=== PATIENT | female | born 1970 | race Caucasian/White ===

== ENCOUNTER 2016-03-07 20:45 | Emergency (ER) | payer MEDICAID | END 2016-03-07 23:15 | disposition left against medical advice (07) | LOC: D.ER 20:45 | DX: M54.9 Dorsalgia, unspecified (principal) ==

== ENCOUNTER 2016-04-06 19:46 | Emergency (ER) | payer MEDICAID | END 2016-04-06 22:26 | disposition home or self-care (01) | LOC: D.ER 19:46 | DX: S60.051A Contusion of right little finger without damage to nail, initial encounter (principal); X58.XXXA Exposure to other specified factors, initial encounter; Y93.51 Activity, roller skating (inline) and skateboarding; Y92.331 Roller skating rink as the place of occurrence of the external cause; J44.9 Chronic obstructive pulmonary disease, unspecified ==

== ENCOUNTER 2016-04-29 18:18 | Emergency (ER) | payer MEDICAID | END 2016-04-29 22:02 | disposition home or self-care (01) | LOC: D.ER 18:18 | DX: M54.2 Cervicalgia (principal); M25.511 Pain in right shoulder; V49.40XA Driver injured in collision with unspecified motor vehicles in traffic accident, initial encounter; Y93.89 Activity, other specified; Y92.410 Unspecified street and highway as the place of occurrence of the external cause; F17.200 Nicotine dependence, unspecified, uncomplicated ==

== ENCOUNTER 2016-08-07 20:02 | Emergency (ER) | payer MEDICAID | END 2016-08-07 21:07 | disposition home or self-care (01) | LOC: D.ER 20:02 | DX: M25.531 Pain in right wrist (principal); M25.431 Effusion, right wrist; F17.200 Nicotine dependence, unspecified, uncomplicated ==

== ENCOUNTER 2016-08-08 17:36 | Emergency (ER) | payer MEDICAID | END 2016-08-08 19:16 | disposition left against medical advice (07) | LOC: D.ER 17:36 | DX: M79.674 Pain in right toe(s) (principal) ==

== ENCOUNTER 2016-08-18 22:33 | Emergency (ER) | payer MEDICAID | END 2016-08-19 03:24 | disposition home or self-care (01) | LOC: D.ER 22:33 | DX: L60.0 Ingrowing nail (principal); F17.200 Nicotine dependence, unspecified, uncomplicated ==

== ENCOUNTER → 2016-09-02 | Emergency (ER) | payer MEDICAID | END | disposition home or self-care (01) | LOC: D.ER 19:21 | DX: Z02.9 Encounter for administrative examinations, unspecified (principal) ==

== ENCOUNTER 2016-12-25 23:04 | Emergency (ER) | payer MEDICAID | END 2016-12-26 00:04 | disposition home or self-care (01) | LOC: D.ER 23:04 | DX: S16.1XXA Strain of muscle, fascia and tendon at neck level, initial encounter (principal); W18.2XXA Fall in (into) shower or empty bathtub, initial encounter; Y93.E1 Activity, personal bathing and showering; Y92.022 Bathroom in mobile home as the place of occurrence of the external cause; S39.012A Strain of muscle, fascia and tendon of lower back, initial encounter; J44.9 Chronic obstructive pulmonary disease, unspecified; Z85.118 Personal history of other malignant neoplasm of bronchus and lung; F17.200 Nicotine dependence, unspecified, uncomplicated ==

== ENCOUNTER 2017-01-03 23:22 | Emergency (ER) | payer MEDICAID ==
[2017-01-04 00:32] LABS: BASOPHILS 0.6 % (0-2); EOSINOPHILS 0.9 % (0-7); HEMATOCRIT 39.6 % (36.0-48.0); IMMATURE GRANULOCYTES 0.3 % (0-5); LYMPHOCYTES 46.8 % (15-50); MCH 35.2 pg (26.0-34.0); MCHC 35.4 g/dL (31.0-37.0); MCV 99.5 fL (80.0-100.0); MEAN PLATELET VOLUME 9.9 fL (7.4-10.4); MONOCYTES 12.6 % (2-11); NEUTROPHILS 38.8 % (40-80); RBC 3.98 10x6/uL (4.00-5.40); RDW 13.2 % (11.5-14.5); WBC 3.4 10x3/uL (4.8-10.8)
[2017-01-04 00:33] LABS: PLATELET COUNT 133 10x3/uL (130-400)
[2017-01-04 00:50] LABS: ALBUMIN 3.2 g/dL (3.4-5.0); ALKALINE PHOSPHATASE 130 U/L (46-116); ALT (SGPT) 47 U/L (10-68); BILIRUBIN - TOTAL 0.24 mg/dL (0.2-1.3); CALC OSMOLALITY 266 mosm/kg (275-300); CALCIUM 8.2 mg/dL (8.5-10.1); CARBON DIOXIDE 21.4 mmol/L (21.0-32.0); CHLORIDE - SERUM 101 mmol/L (98-107); CREATININE - SERUM 0.6 mg/dL (0.6-1.3); GLUCOSE 94 mg/dL (74-106); POTASSIUM - SERUM 3.7 mmol/L (3.5-5.1); PROTEIN - SERUM 6.8 g/dL (6.4-8.2); SODIUM 135 mmol/L (136-145); UREA NITROGEN 4 mg/dL (7-18); eGFR NON AFRICAN AMERICAN > 90 mL/min (90-120)
== END 2017-01-04 01:10 | disposition home or self-care (01) ==
LOC: D.ER 23:22
PROVIDERS: Family Medicine
DX: S06.0X1A Concussion with loss of consciousness of 30 minutes or less, initial encounter (principal); W18.2XXA Fall in (into) shower or empty bathtub, initial encounter; Y93.E1 Activity, personal bathing and showering; Y92.022 Bathroom in mobile home as the place of occurrence of the external cause; F17.200 Nicotine dependence, unspecified, uncomplicated

== ENCOUNTER 2017-04-01 13:11 | Emergency (ER) | payer SELFPAY | END 2017-04-01 17:08 | disposition home or self-care (01) | LOC: D.ER 13:11 | DX: L60.0 Ingrowing nail (principal); J44.9 Chronic obstructive pulmonary disease, unspecified; F17.200 Nicotine dependence, unspecified, uncomplicated ==

== ENCOUNTER 2017-06-21 15:10 | Emergency (ER) | payer MEDICAID ==
[2017-06-21 15:52] LABS: BASOPHILS 0.5 % (0-2); EOSINOPHILS 0.5 % (0-7); HEMATOCRIT 46.6 % (36.0-48.0); HEMOGLOBIN 16.1 g/dL (12-16); IMMATURE GRANULOCYTES 0.5 % (0-5); LYMPHOCYTES 25.8 % (15-50); MCHC 34.5 g/dL (31.0-37.0); MCV 104.3 fL (80.0-100.0); MEAN PLATELET VOLUME 10.6 fL (7.4-10.4); MONOCYTES 21.3 % (2-11); NEUTROPHILS 51.4 % (40-80); RBC 4.47 10x6/uL (4.00-5.40); RDW 12.8 % (11.5-14.5); WBC 2.2 10x3/uL (4.8-10.8)
[2017-06-21 15:54] LABS: PLATELET COUNT 81 10x3/uL (130-400)
[2017-06-21 16:18] LABS: PLATELET ESTIMATE DECREASED
== END 2017-06-21 17:13 | disposition home or self-care (01) ==
LOC: D.ER 15:10
PROVIDERS: Nurse Practitioner Family
DX: S16.1XXA Strain of muscle, fascia and tendon at neck level, initial encounter (principal); V43.52XA Car driver injured in collision with other type car in traffic accident, initial encounter; Y93.89 Activity, other specified; Y92.410 Unspecified street and highway as the place of occurrence of the external cause; S29.012A Strain of muscle and tendon of back wall of thorax, initial encounter; S39.012A Strain of muscle, fascia and tendon of lower back, initial encounter; S46.912A Strain of unspecified muscle, fascia and tendon at shoulder and upper arm level, left arm, initial encounter; M62.838 Other muscle spasm

== ENCOUNTER 2017-11-03 20:49 | Emergency (ER) | payer MEDICAID ==
[~2017-11-03] VITALS: Ht 170.2 cm; Wt 52.3 kg
[2017-11-03 21:09] VITALS: Ht 170.2 cm; Wt 52.3 kg
[2017-11-03] MEDS ORDERED: TORADOL10 MG PO (23:33)
[2017-11-03 23:44] VITALS: BP 157/84
== END 2017-11-03 23:44 | disposition home or self-care (01) ==
LOC: D.ER 20:49
DX: S49.91XA Unspecified injury of right shoulder and upper arm, initial encounter (principal); W01.0XXA Fall on same level from slipping, tripping and stumbling without subsequent striking against object, initial encounter; Y93.89 Activity, other specified; Y92.019 Unspecified place in single-family (private) house as the place of occurrence of the external cause; S59.901A Unspecified injury of right elbow, initial encounter; F17.200 Nicotine dependence, unspecified, uncomplicated

== ENCOUNTER 2017-11-09 11:42 | Emergency (ER) | payer OTHER ==
[~2017-11-09 11:42] MED LIST: TORADOL10 MG PO
[2017-11-09 11:50] VITALS: BP 185/113; Ht 170.2 cm
== END 2017-11-09 12:40 | disposition home or self-care (01) ==
LOC: D.ER 11:42
DX: M25.511 Pain in right shoulder (principal)

== ENCOUNTER 2018-06-01 13:33 | Emergency (ER) | payer OTHER ==
[~2018-06-01] VITALS: Ht 170.2 cm; Wt 54.1 kg
[2018-06-01 13:54] VITALS: BP 133/74; Ht 170.2 cm; Wt 54.1 kg
== END 2018-06-01 18:09 | disposition left against medical advice (07) ==
LOC: D.ER 13:33
DX: M25.541 Pain in joints of right hand (principal)

== ENCOUNTER 2018-06-07 18:42 | Emergency (ER) | payer OTHER ==
[~2018-06-07] VITALS: Ht 170.2 cm; Wt 53.2 kg
[2018-06-07 18:57] VITALS: Ht 170.2 cm; Wt 53.2 kg
[2018-06-07] MEDS ORDERED: VOLTAREN75 MG PO (20:44)
[2018-06-07 21:34] VITALS: BP 117/66
== END 2018-06-07 21:32 | disposition home or self-care (01) ==
LOC: D.ER 18:42
DX: M67.431 Ganglion, right wrist (principal); M25.531 Pain in right wrist

== ENCOUNTER 2018-10-11 13:50 | Emergency (ER) | payer OTHER ==
[~2018-10-11] VITALS: Ht 170.2 cm; Wt 51.8 kg
[~2018-10-11 13:50] MED LIST changes: +VOLTAREN75 MG PO
[2018-10-11 14:06] VITALS: Ht 170.2 cm; Wt 51.8 kg
[2018-10-11] MEDS ORDERED: HYDROXYZINE HCL10 MG PO (14:11)
[2018-10-11] MEDS ORDERED: HYDRALAZINE20 MG/ML PO (14:12)
[2018-10-11] MEDS ORDERED: VOLTAREN75 MG PO (15:03)
[2018-10-11 16:16] VITALS: BP 134/76
== END 2018-10-11 16:10 | disposition home or self-care (01) ==
LOC: D.ER 13:50
DX: S89.92XA Unspecified injury of left lower leg, initial encounter (principal); X58.XXXA Exposure to other specified factors, initial encounter; Y93.89 Activity, other specified; Y92.89 Other specified places as the place of occurrence of the external cause; M79.605 Pain in left leg

== ENCOUNTER 2018-10-27 19:52 | Emergency (ER) | payer OTHER ==
[~2018-10-27] VITALS: Ht 170.2 cm; Wt 50.0 kg
[~2018-10-27 19:52] MED LIST changes: +HYDRALAZINE20 MG/ML PO; +HYDROXYZINE HCL10 MG PO
[2018-10-27 19:56] VITALS: BP 127/59; Ht 170.2 cm; Wt 50.0 kg
== END 2018-10-27 21:29 | disposition home or self-care (01) ==
LOC: D.ER 19:52
DX: S60.454A Superficial foreign body of right ring finger, initial encounter (principal); W49.04XA Ring or other jewelry causing external constriction, initial encounter

== ENCOUNTER 2018-11-16 20:48 | Emergency (ER) | payer OTHER ==
[~2018-11-16] VITALS: Ht 170.2 cm; Wt 51.7 kg
[2018-11-16 21:07] VITALS: BP 133/73; Ht 170.2 cm; Wt 51.7 kg
[2018-11-16] MEDS ORDERED: TRAZODONE HCL150 MG PO (21:08)
[2018-11-16] MEDS ORDERED: CELEXA20 MG PO (21:08)
[2018-11-16] MEDS ORDERED: VOLTAREN25 MG PO (22:15)
== END 2018-11-16 22:24 | disposition home or self-care (01) ==
LOC: D.ER 20:48
DX: M25.531 Pain in right wrist (principal)

== ENCOUNTER 2018-12-02 21:49 | Emergency (ER) | payer OTHER ==
[~2018-12-02] VITALS: Ht 170.2 cm; Wt 50.9 kg
[~2018-12-02 21:49] MED LIST changes: +CELEXA20 MG PO; +TRAZODONE HCL150 MG PO; +VOLTAREN25 MG PO
[2018-12-02 21:57] VITALS: BP 135/99; Ht 170.2 cm; Wt 50.9 kg
== END 2018-12-02 23:23 | disposition home or self-care (01) ==
LOC: D.ER 21:49
DX: R07.81 Pleurodynia (principal); M25.512 Pain in left shoulder

== ENCOUNTER → 2018-12-22 11:13 | Outpatient (CLI) | payer OTHER ==
[2018-12-02 21:57] VITALS: BMI 17.5
[~2018-12-22 11:13] MED LIST changes: +NAPROSYN500 MG PO
== END | disposition home or self-care (01) ==
LOC: D.RT 11:13
PROVIDERS: ATTEND Nurse Practitioner
DX: J44.9 Chronic obstructive pulmonary disease, unspecified (principal)

== ENCOUNTER 2018-12-27 16:26 | Emergency (ER) | payer OTHER ==
[~2018-12-27] VITALS: Ht 170.2 cm; Wt 54.1 kg
[~2018-12-27 16:26] MED LIST changes: -NAPROSYN500 MG PO
[2018-12-27 16:42] VITALS: Ht 170.2 cm; Wt 54.1 kg
[2018-12-27] MEDS ORDERED: NAPROSYN500 MG PO (18:01)
[2018-12-27 18:35] VITALS: BP 122/78
== END 2018-12-27 18:47 | disposition home or self-care (01) ==
LOC: D.ER 16:26
DX: M25.512 Pain in left shoulder (principal); I10 Essential (primary) hypertension; Z72.0 Tobacco use; J44.9 Chronic obstructive pulmonary disease, unspecified

== ENCOUNTER → 2019-02-14 | Emergency (ER) | payer OTHER ==
[~2019-02-14] VITALS: Ht 170.2 cm; Wt 50.5 kg
[~2019-02-14] MED LIST changes: +BACLOFEN20 M1 PO; +NAPROSYN500 MG PO; +PREDNISONE20 MG PO; +TYLENOL #4 W/CO1 TAB PO
[2019-02-14 17:52] VITALS: BP 126/69; Ht 170.2 cm; Wt 50.5 kg
== END | disposition home or self-care (01) ==
LOC: D.ER 17:11
DX: G89.29 Other chronic pain (principal); M25.512 Pain in left shoulder; J44.9 Chronic obstructive pulmonary disease, unspecified; Z72.0 Tobacco use

== ENCOUNTER → 2019-02-23 14:21 | Outpatient (CLI) | payer OTHER ==
[2019-02-14 17:52] VITALS: BMI 17.4
== END | disposition home or self-care (01) ==
LOC: D.CT 14:21
PROVIDERS: ATTEND Internal Medicine Pulmonary Disease
DX: R07.89 Other chest pain (principal)

== ENCOUNTER 2019-07-02 16:45 | Emergency (ER) | payer OTHER ==
[~2019-07-02] VITALS: Ht 170.2 cm; Wt 45.0 kg
[~2019-07-02 16:45] MED LIST changes: +ATARAX 25 MG TA25 MG PO; +NORCO-7.51 TAB PO
[2019-07-02 16:50] VITALS: Ht 170.2 cm; Wt 45.0 kg
[2019-07-02] MEDS ORDERED: VIBRAMYCIN 100100 MG PO (17:52)
[2019-07-02] MEDS ORDERED: VOLTAREN75 MG PO (17:52)
[2019-07-02 18:26] VITALS: BP 140/79
== END 2019-07-02 18:26 | disposition home or self-care (01) ==
LOC: D.ER 16:45
DX: L03.031 Cellulitis of right toe (principal); J44.9 Chronic obstructive pulmonary disease, unspecified; Z72.0 Tobacco use

== ENCOUNTER 2019-07-04 12:31 | Emergency (ER) | payer OTHER ==
[~2019-07-04] VITALS: Ht 170.2 cm; Wt 45.0 kg
[~2019-07-04 12:31] MED LIST changes: +VIBRAMYCIN 100100 MG PO
[2019-07-04 12:37] VITALS: BP 144/80; Ht 170.2 cm; Wt 45.0 kg
== END 2019-07-04 14:55 | disposition left against medical advice (07) ==
LOC: D.ER 12:31
DX: M54.9 Dorsalgia, unspecified (principal); M79.603 Pain in arm, unspecified; W19.XXXA Unspecified fall, initial encounter

== ENCOUNTER → 2019-07-15 12:58 | Outpatient (CLI) | payer OTHER ==
[2019-07-04 12:37] VITALS: BMI 15.5
[2019-07-16 11:09] LABS: ANA REFLEX - DIRECT Negative (Negative)
[2019-07-18 11:09] LABS: ANGIOTENSIN CONVERTING ENZYME 28 U/L (14-82)
== END | disposition home or self-care (01) ==
LOC: D.LAB 12:58 → D.CT 13:30
PROVIDERS: ATTEND Internal Medicine Pulmonary Disease
DX: R91.8 Other nonspecific abnormal finding of lung field (principal); J44.9 Chronic obstructive pulmonary disease, unspecified

== ENCOUNTER → 2019-09-26 12:41 | Outpatient (CLI) | payer OTHER ==
[2019-07-04 12:37] VITALS: BMI 15.5
== END | disposition home or self-care (01) ==
LOC: D.RAD 08-22 13:15
PROVIDERS: ATTEND Pediatrics
DX: Z02.71 Encounter for disability determination (principal)

== ENCOUNTER 2019-10-07 16:17 | Emergency (ER) | payer OTHER ==
[~2019-10-07] VITALS: Ht 170.2 cm; Wt 52.7 kg
[2019-10-07 16:24] VITALS: Ht 170.2 cm; Wt 52.7 kg
[2019-10-07 17:20] LABS: CALC OSMOLALITY 282 mosm/kg (275-300); CALCIUM 8.6 mg/dL (8.5-10.1); CHLORIDE - SERUM 106 mmol/L (98-107); CREATININE - SERUM 0.9 mg/dL (0.6-1.3); GLUCOSE 108 mg/dL (74-106); POTASSIUM - SERUM 4.3 mmol/L (3.5-5.1); SODIUM 141 mmol/L (136-145); UREA NITROGEN 16 mg/dL (7-18); eGFR NON AFRICAN AMERICAN 70 mL/min (90-120)
[2019-10-07 17:29] LABS: BASOPHILS 0.4 % (0-2); EOSINOPHILS 0.4 % (0-7); HEMATOCRIT 48.6 % (36.0-48.0); HEMOGLOBIN 16.5 g/dL (12-16); IMMATURE GRANULOCYTES 0.4 % (0-5); MEAN PLATELET VOLUME 9.7 fL (7.4-10.4); MONOCYTES 9.1 % (2-11); NEUTROPHILS 54.7 % (40-80); RBC 4.86 10x6/uL (4.00-5.40); RDW 14.3 % (11.5-14.5); WBC 4.5 10x3/uL (4.8-10.8)
[2019-10-07 17:31] LABS: PLATELET COUNT 209 10x3/uL (130-400)
[2019-10-07 17:37] LABS: ALBUMIN 3.2 g/dL (3.4-5.0); ALKALINE PHOSPHATASE 104 U/L (30-120); ALT (SGPT) 18 U/L (10-68); BILIRUBIN - TOTAL 0.23 mg/dL (0.2-1.3); CKMB 1.3 U/L (0.0-3.6); CREATINE KINASE 85 UL (21-215); MAGNESIUM - SERUM 1.9 mg/dL (1.8-2.4); PROTEIN - SERUM 6.5 g/dL (6.4-8.2)
[2019-10-07 17:43] LABS: TROPONIN-I < 0.017 ng/mL (0.000-0.060)
[2019-10-07 17:44] LABS: APTT 26.1 SECONDS (22.8-39.4); INR 0.99 (0.85-1.17); PROTIME 13.1 SECONDS (11.6-15.0)
[2019-10-07] MEDS ORDERED: MEDROL DOSE PACK4 MG PO (18:54)
[2019-10-07] MEDS ORDERED: VISTARIL25 MG PO (18:54)
[2019-10-07] MEDS ORDERED: PEPCID AC20 MG PO (18:55)
[2019-10-07 19:26] VITALS: BP 117/50
== END 2019-10-07 19:27 | disposition home or self-care (01) ==
LOC: D.ER 16:17
PROVIDERS: Emergency Medicine
DX: R55 Syncope and collapse (principal); T78.40XA Allergy, unspecified, initial encounter; S39.012A Strain of muscle, fascia and tendon of lower back, initial encounter; S16.1XXA Strain of muscle, fascia and tendon at neck level, initial encounter; X58.XXXA Exposure to other specified factors, initial encounter; E86.0 Dehydration; R51 Headache; J44.9 Chronic obstructive pulmonary disease, unspecified

== ENCOUNTER 2019-11-25 16:33 | Emergency (ER) | payer OTHER ==
[~2019-11-25] VITALS: Ht 170.2 cm; Wt 52.3 kg
[~2019-11-25 16:33] MED LIST changes: +MEDROL DOSE PACK4 MG PO; +PEPCID AC20 MG PO; +VISTARIL25 MG PO
[2019-11-25 16:48] VITALS: BP 122/90; Ht 170.2 cm; Wt 52.3 kg
== END 2019-11-25 17:47 | disposition home or self-care (01) ==
LOC: D.ER 16:33
DX: M67.431 Ganglion, right wrist (principal); J44.9 Chronic obstructive pulmonary disease, unspecified; Z72.0 Tobacco use; M79.641 Pain in right hand

== ENCOUNTER → 2020-05-16 11:59 | Outpatient (CLI) | payer OTHER ==
[2019-12-30 14:40] VITALS: BMI 18.5
[~2020-05-16 11:59] MED LIST changes: +DICLOFENAC SODI50 MG PO; +KEFLEX500 MG PO
== END | disposition home or self-care (01) ==
LOC: D.LAB 11:59
PROVIDERS: ATTEND Internal Medicine Pulmonary Disease
DX: Z11.52 Encounter for screening for COVID-19 (principal)

== ENCOUNTER → 2020-05-21 10:16 | Outpatient (CLI) | payer OTHER ==
[2019-12-30 14:40] VITALS: BMI 18.5
== END | disposition home or self-care (01) ==
LOC: D.RT 09:00
PROVIDERS: ATTEND Internal Medicine Pulmonary Disease
DX: J44.9 Chronic obstructive pulmonary disease, unspecified (principal); Z11.52 Encounter for screening for COVID-19

== ENCOUNTER 2020-07-02 15:23 | Emergency (ER) | payer OTHER ==
[~2020-07-02] VITALS: Ht 170.2 cm; Wt 50.5 kg
[2020-07-02 15:27] VITALS: Ht 170.2 cm; Wt 50.5 kg
[2020-07-02] MEDS ORDERED: HYDROCODONE-AC1 EAC2 PO (15:38)
[2020-07-02 16:07] LABS: UDS - AMPHET NEGATIVE QUAL (NEGATIVE); UDS - BARB NEGATIVE QUAL (NEGATIVE); UDS - BENZO NEGATIVE QUAL (NEGATIVE); UDS - COCAINE NEGATIVE QUAL (NEGATIVE); UDS - OPIATE POSITIVE QUAL (NEGATIVE); UDS - PCP NEGATIVE QUAL (NEGATIVE); UDS - THC POSITIVE QUAL (NEGATIVE)
[2020-07-02 16:09] LABS: BASOPHILS 0.7 % (0-2); EOSINOPHILS 0.4 % (0-7); HEMOGLOBIN 14.1 g/dL (12-16); LYMPHOCYTES 30.2 % (15-50); MCH 34.7 pg (26.0-34.0); MCHC 34.5 g/dL (31.0-37.0); MCV 100.7 fL (80.0-100.0); MEAN PLATELET VOLUME 7.6 fL (7.4-10.4); MONOCYTES 7.6 % (2-11); NEUTROPHILS 61.1 % (40-80); RBC 4.08 10x6/uL (4.00-5.40); RDW 14.7 % (11.5-14.5); WBC 3.7 10x3/uL (4.8-10.8)
[2020-07-02 16:19] LABS: PLATELET COUNT 163 10x3/uL (130-400)
[2020-07-02 16:25] LABS: BILIRUBIN NEGATIVE (NEGATIVE); KETONE NEGATIVE (NEGATIVE); NITRITE NEGATIVE (NEGATIVE); UROBILINOGEN NORMAL mg/dL (< 2)
[2020-07-02 16:26] LABS: CALC OSMOLALITY 284 mosm/kg (275-300); CALCIUM 8.7 mg/dL (8.5-10.1); CARBON DIOXIDE 25.2 mmol/L (21.0-32.0); CHLORIDE - SERUM 104 mmol/L (98-107); CREATININE - SERUM 0.7 mg/dL (0.6-1.3); GLUCOSE 113 mg/dL (74-106); POTASSIUM - SERUM 3.8 mmol/L (3.5-5.1); SODIUM 143 mmol/L (136-145); UREA NITROGEN 10 mg/dL (7-18); eGFR NON AFRICAN AMERICAN > 90 mL/min (90-120)
[2020-07-02 16:31] LABS: ALBUMIN 3.6 g/dL (3.4-5.0); ALKALINE PHOSPHATASE 86 U/L (30-120); ALT (SGPT) 20 U/L (10-68); BILIRUBIN - TOTAL 0.14 mg/dL (0.2-1.3); PROTEIN - SERUM 7.2 g/dL (6.4-8.2)
[2020-07-02 17:05] VITALS: BP 160/82
== END 2020-07-02 17:05 | disposition home or self-care (01) ==
LOC: D.ER 15:23
PROVIDERS: Emergency Medicine
DX: F32.9 Major depressive disorder, single episode, unspecified (principal); F10.129 Alcohol abuse with intoxication, unspecified; Y90.9 Presence of alcohol in blood, level not specified; J44.9 Chronic obstructive pulmonary disease, unspecified; Z72.0 Tobacco use; R10.9 Unspecified abdominal pain